=== PATIENT | female | born 1990 | race Caucasian/White ===

== ENCOUNTER 2016-12-10 04:26 | Emergency (ER) | payer MEDICAID ==
[~2016-12-10] VITALS: Ht 142.2 cm; Wt 62.6 kg
[2016-12-10 04:51] VITALS: Ht 142.2 cm; Wt 62.6 kg
[2016-12-10] MEDS ORDERED: SOD CHLORIDE 0.9% 1,000 ML IV STA (06:00)
[2016-12-10 06:22] LABS: ADD SCAN DIFF NO
[2016-12-10 06:27] LABS: BASOPHIL # 0.1 10^3/ul (0.0-0.1); BASOPHILS % 0.4 % (0.0-2.0); EOSINOPHILS # 0.2 10^3/ul (0.0-0.5); EOSINOPHILS % 1.4 % (0.0-7.0); HEMATOCRIT 35.7 % (37.0-47.0); HEMOGLOBIN 11.7 g/dl (12.0-16.0); LYMPHOCYTES # 0.9 10^3/ul (0.8-2.9); LYMPHOCYTES % 7.7 % (15.0-51.0); MEAN CORPUSCULAR HEMOGLOBIN 29.2 pg (29.0-33.0); MEAN CORPUSCULAR HGB CONC 32.8 g/dl (32.0-37.0); MEAN PLATELET VOLUME 11.1 fl (7.4-10.4); MONOCYTE # 0.6 10^3/ul (0.3-0.9); MONOCYTES % 4.9 % (0.0-11.0); NEUTROPHIL # 9.8 10^3/ul (1.6-7.5); NEUTROPHILS % 84.6 % (39.0-77.0); PLATELET COUNT 234 10^3/UL (140-415); RED BLOOD COUNT 4.01 10^6/ul (4.20-5.40); RED CELL DISTRIBUTION WIDTH 15.6 % (11.5-14.5); WHITE BLOOD COUNT 11.6 10^3/ul (4.8-10.8)
[2016-12-10] MEDS ORDERED: ACETAMINOPHEN 325 MG TAB PO ONE (06:30)
[2016-12-10 06:55] LABS: ADD UMIC YES; URINE BILIRUBIN (Dip) NEGATIVE (NEGATIVE); URINE BLOOD (Dip) 3+ (NEGATIVE); URINE COLOR LT. YELLOW (YELLOW); URINE GLUCOSE (Dip) NEGATIVE (NEGATIVE); URINE KETONES (Dip) NEGATIVE (NEGATIVE); URINE LEUKOCYTE ESTERASE (Dip) 1+ (NEGATIVE); URINE NITRITE (Dip) NEGATIVE (NEGATIVE); URINE TOTAL PROTEIN (Dip) NEGATIVE (NEGATIVE); URINE UROBILINOGEN (Dip) 0.2 E.U./dL (0.1-1.0)
[2016-12-10 07:07] LABS: SQUAMOUS EPITHELIAL CELL,UR FEW; URINE RBCS >50 /HPF (0)
[2016-12-10] MEDS ORDERED: CEFEPIME 1GM/50 ML (PMX) 50 ML IVPB ONE (08:00)
--- NOTE | 2016-12-10 08:22 | RADRPT ---
PROCEDURE: US Pelvis. CLINICAL INDICATION: Vaginal bleeding. day #2. TECHNIQUE: Multiple transabdominal sonographic images of the pelvis were obtained. COMPARISON: None. FINDINGS: The uterus is anteverted in position and measures approximately 16.5 x 9.3 x 13.7 cm. The uterus is mildly edematous compatible with state. The endometrium measures approximately 13-14 mm i n thickness and is mildly heterogeneous in echogenicity. There is no evidence of endometrial mass. Prominent subendometrial vessels of the posterior uterine body are present and may reflect postpart um enhanced myometrial vascularity. The cervix is normal. There is no free pelvic fluid. The ovaries are not visualized. The adnexa are unremarkable. IMPRESSION: Prominent subendometrial vessels of the posterior uterine body which may reflect enhanced myometrial vascularity. There is no evidence of endometrial mass. Continued clinical monitoring an d follow-up pelvic ultrasound advised. RPTAT: HLST .Regina Leon MD, Date Time Electronically viewed and signed by .Regina Leon MD, on 12/10/2016 08:22 .T/
[2016-12-10] MEDS ORDERED: TYL500 PO (10:55)
[2016-12-10] MEDS ORDERED: CEPH-443 PO (10:55)
[2016-12-10 11:20] VITALS: BP 107/65; PULSE 74; RESP 18; TEMP 98.4
--- NOTE | 2017-01-15 03:52 | ERD ---
DATE OF SERVICE: 12/10/2016 HISTORY OF PRESENT ILLNESS: This 26-year-old female presented to the emergency room for having some vaginal bleeding with clot passage and crampy generalized abdominal pain with increased pain in her right lower pelvic area going on since of her child. She had a normal vaginal delivery 2 day s ago of a healthy baby. She came in today because of the continued pain and the passage of clots. She says that it is not a lot of bleeding but she became concerned when she saw several blood clots pass as well. REVIEW OF SYSTEMS: A 10-point review of systems negative except as in the HPI. PAST MEDICAL HISTORY: Negative. PAST SURGICAL HISTORY: Cholecystectomy, appendectomy. FAMILY HISTORY: Noncontributory. SOCIAL HISTORY: The patient denies tobacco, alcohol, or other drugs and lives with the family where she has other support to help with the baby. PHYSICAL EXAMINATION VITAL SIGNS: Temperature 98.3, pulse 96, blood pressure 108/59, respirations 18, oxygen saturation 97% on room air. GENERAL: No acute distress. HEENT: Normocephalic, atraumatic. CARDIAC: Regular rate and rhythm without murmurs. LUNGS: Clear to auscultation bilaterally. ABDOMEN: Soft. Mild tenderness in the suprapubic area as well as bilateral lower pelvic area witho ut guarding or rebound, nondistended, no palpable masses. EXTREMITIES: No cyanosis, clubbing, or edema. NEUROLOGIC: No focal deficits, alert and oriented x3. SKIN: No rashes or other lesions. DIAGNOSTIC DATA: Pelvic ultrasound interpretation: Normal changes without abnormal flui d collection. No masses, normal cervix. LABORATORY ANALYSIS: CBC significant for a very mildly elevated white blood cell count of 11.6 with a hemoglobin low at 11.7, indicating normocytic anemia, which is at a level to be expected in a pos tpartum patient. Urinalysis is positive for a urinary tract infection with 10 to 25 white cells per high-powered field, 1+ leukocyte esterase. EMERGENCY DEPARTMENT COURSE AND MEDICAL DECISION MAKING: A 26-year-old female with bleed ing and urinary tract infection. The patient's pain was easily controlled in the emergency room wit h acetaminophen and IV fluid. She was given a liter of normal saline. She was also given a gram of cefepime. There is no concern for appendicitis or cholecystitis as the patient has had these organ s surgically removed. There is no evidence of abnormal fluid collection indicating a end ometrium infection or abscess. The patient felt comfortable with only Tylenol with normal vital sig ns. I do feel safe discharging her with gynecological followup and return precautions to the ER wit gan the next 2 days. I am discharging her with Keflex and acetaminophen. DISCHARGE DIAGNOSES: 1. Urinary tract infection. 2. vaginal bleeding. 3. Pelvic pain. DISPOSITION: Home in stable condition. Dictated By: ROSA HANLEY/EMELY Conf#: [id number] DID#: [id number]
== END 2016-12-10 11:22 | disposition home or self-care (01) ==
LOC: E/R 04:26
DX: O72.1 Other immediate postpartum hemorrhage (principal); O86.20 Urinary tract infection following delivery, unspecified; R10.2 Pelvic and perineal pain; B96.89 Other specified bacterial agents as the cause of diseases classified elsewhere
CPT/HCPCS: 76856; 81001; 85025; 87086; J0692; J7030; Z7610; 36415; 81003; 96374

== ENCOUNTER 2017-12-06 22:11 | Emergency (ER) | END 2017-12-07 01:52 | disposition home or self-care (01) ==

== ENCOUNTER 2018-08-16 19:23 | Emergency (ER) | END 2018-08-16 22:14 | disposition home or self-care (01) ==

== ENCOUNTER 2019-04-01 20:41 | Emergency (ER) | payer MEDICAID ==
[~2019-04-01] VITALS: Ht 152.4 cm; Wt 62.0 kg
[~2019-04-01 20:41] MED LIST: CEPH-443 PO; IBUP-1542 PO; NAPR-985 PO; SULF1TAB31 PO; TYL500 PO
[2019-04-01 20:47] VITALS: Ht 152.4 cm; Wt 62.0 kg
[2019-04-01] MEDS ORDERED: SOD CHLORIDE 0.9% 1,000 ML IV STA (23:09)
[2019-04-01] MEDS ORDERED: ONDANSETRON 4 MG INJ IV STA (23:09)
[2019-04-01] MEDS ORDERED: KETOROLAC 15 MG INJ IV STA (23:09)
[2019-04-01] MEDS ORDERED: DICYCLOMINE 10 MG CAP PO ONE (23:30)
[2019-04-02] MEDS ORDERED: TRAM50TA2 PO (01:51)
[2019-04-02] MEDS ORDERED: ONDA4TAB14 PO (01:52)
[2019-04-02 02:10] VITALS: BP 101/61; PULSE 68; RESP 17
--- NOTE | 2019-04-02 03:41 | ERD ---
ER Documentation Chief Complaint Chief Complaint RUQ WITH RADIATING PAIN TO BACK X 1 WK HPI 28-year-old Kiswahili-speaking female with history of cholelithiasis who presents to the ED complaining of right upper quadrant pain radiating to her back for the past 1 week. Patient is having intermittent, and worse after eating food. She states her diet mostly consists of beans burritos. She has some nausea but denies any vomiting. Denies any urinary symptoms. Denies any diarrhea. Denies any fevers or chills. No other complaints. ROS All systems reviewed and are negative except as per history of present illness. Medications Home Meds Active Scripts Ondansetron (Ondansetron Odt) 4 Mg Tab.rapdis, 4 MG PO Q6H PRN for NAUSEA AND/OR VOMITING, #10 TAB Prov:ADITI MAYO-C 04/02/19 Tramadol HCl (Tramadol HCl) 50 Mg Tablet, 50 MG PO Q6 PRN for PAIN, #20 TAB Prov:ADITI MAYO-C 04/02/19 Naproxen* (Naprosyn*) 500 Mg Tablet, 500 MG PO BID PRN for PAIN AND/OR INFLAMMATION, #30 TAB Prov:ZULY UREÑA PA-C 08/16/18 Sulfamethoxazole/Trimethoprim* (Bactrim Ds* Tablet) 1 Each Tablet, 1 TAB PO BID, #14 TAB Prov:JANETH VIDALC 12/07/17 Cephalexin* (Keflex*) 500 Mg Capsule, 500 MG PO TID for 7 Days, CAP Prov:JANETH VIDALC 12/07/17 Ibuprofen* (Motrin*) 600 Mg Tab, 600 MG PO Q6, #30 TAB Prov:JANETH VIDAL-C 12/07/17 Cephalexin* (Keflex*) 500 Mg Capsule, 500 MG PO QID for 3 Days, CAP Prov:ROSA PARKER DO 12/10/16 Acetaminophen* (Tylenol*) 500 Mg Tab, 500 MG PO Q4H PRN for MILD PAIN LEVEL 1-3, #20 TAB Prov:GREENJULESROSA DO 12/10/16 Allergies Allergies: Coded Allergies: No Known Allergy (Unverified , 01/24/16) PMhx/Soc History of Surgery: Yes (appendectomy) Anesthesia Reaction: No Hx Neurological Disorder: No Hx Respiratory Disorders: No Hx Cardiac Disorders: No Hx Psychiatric Problems: No Hx Miscellaneous Medical Probl: No Hx Alcohol Use: No Hx Substance Use: No Hx Tobacco Use: No Smoking Status: Never smoker Physical Exam Vitals Vital Signs Date Temp Pulse Resp B/P (MAP) Pulse Ox O2 O2 Flow FiO2 Time Delivery Rate 04/02/19 97.9 68 17 101/61 98 Room Air 02:10 (74) 04/01/19 97.4 85 17 113/79 99 20:47 (90) Physical Exam Const: No acute distress Head: Atraumatic Eyes: Normal Conjunctiva ENT: Normal External Ears, Nose and Mouth. Neck: Full range of motion. No meningismus. Resp: Clear to auscultation bilaterally Cardio: Regular rate and rhythm, no murmurs Abd: Soft, + right upper quadrant tenderness palpation. Positive Alvarez's. Negative McBurney's. No rebound, no guarding. Non distended. Normal bowel sounds Skin: No petechiae or rashes Back: No midline or flank tenderness Ext: No cyanosis, or edema Neur: Awake and alert Psych: Normal Mood and Affect Result Diagram: 04/01/19 2341 04/01/19 2341 Results 24 hrs Laboratory Tests Test 04/01/19 23:40 04/01/19 23:41 04/01/19 23:51 Serum HCG, Qualitative NEGATIVE White Blood Count 9.8 10^3/ul Red Blood Count 4.29 10^6/ul Hemoglobin 12.7 g/dl Hematocrit 38.6 % Mean Corpuscular Volume 90.0 fl Mean Corpuscular Hemoglobin 29.6 pg Mean Corpuscular 32.9 g/dl Hemoglobin Concent Red Cell Distribution Width 12.6 % Platelet Count 328 10^3/UL Mean Platelet Volume 10.2 fl Immature Granulocytes % 0.500 % Neutrophils % 67.5 % Lymphocytes % 22.0 % Monocytes % 7.2 % Eosinophils % 2.3 % Basophils % 0.5 % Nucleated Red Blood Cells % 0.0 /100WBC Immature Granulocytes # 0.050 10^3/ul Neutrophils # 6.6 10^3/ul Lymphocytes # 2.2 10^3/ul Monocytes # 0.7 10^3/ul Eosinophils # 0.2 10^3/ul Basophils # 0.1 10^3/ul Nucleated Red Blood Cells # 0.0 10^3/ul Urine Color YELLOW Urine Clarity SLIGHTLY CLOUDY Urine pH 5.0 Urine Specific [place] 1.024 Urine Ketones NEGATIVE mg/dL Urine Nitrite NEGATIVE mg/dL Urine Bilirubin NEGATIVE mg/dL Urine Urobilinogen NEGATIVE mg/dL Urine Leukocyte Esterase NEGATIVE Rafita/ul Urine Microscopic RBC 2 /HPF Urine Microscopic WBC 1 /HPF Urine Squamous Epithelial Cells FEW /HPF Urine Bacteria FEW /HPF Urine Mucus FEW /HPF Urine Hemoglobin 2+ mg/dL Urine Glucose NEGATIVE mg/dL Urine Total Protein NEGATIVE mg/dl Sodium Level 139 mmol/L Potassium Level 3.6 mmol/L Chloride Level 105 mmol/L Carbon Dioxide Level 26 mmol/L Anion Gap 8 Blood Urea Nitrogen 12 mg/dl Creatinine 0.65 mg/dl Est Glomerular Filtrat > 60 mL/min Rate mL/min Glucose Level 86 mg/dl Calcium Level 9.1 mg/dl Total Bilirubin 0.3 mg/dl Direct Bilirubin 0.00 mg/dl Indirect Bilirubin 0.3 mg/dl Aspartate Amino Transf (AST/SGOT) 22 IU/L Alanine 30 IU/L Aminotransferase (ALT/SGPT) Alkaline Phosphatase 94 IU/L Total Protein 7.5 g/dl Albumin 4.1 g/dl Globulin 3.40 g/dl Albumin/Globulin Ratio 1.20 Lipase 61 U/L POC Beta HCG, Qualitative NEGATIVE Current Medications Medications Dose Sig/Iris Start Time Status Last (Trade) Ordered Route PRN Stop Time Admin Dose Reason Admin Sodium 1,000 ml @ Q1H STAT 04/01/19 DC 04/01/19 Chloride 1,000 mls/hr IV 23:09 23:53 04/02/19 00:08 Ondansetron 4 mg ONCE STAT 04/01/19 DC 04/01/19 HCl (Zofran IV 23:09 23:53 Inj) 04/01/19 23:11 Ketorolac 15 mg ONCE STAT 04/01/19 DC 04/01/19 Tromethamine IV 23:09 23:56 (Toradol) 04/01/19 23:11 Dicyclomine 20 mg ONCE ONCE 04/01/19 DC 04/01/19 HCl PO 23:30 23:56 (Bentyl) 04/01/19 23:31 Procedures/MDM LABS & DIAGNOSTIC IMAGING: CBC: no e/o of systemic infection or severe anemia CMP: no e/o severe acidosis, alkalosis, renal failure, diabetic ketoacidosis, liver disease The patient's lipase is normal and indicative of no pancreatitis. Urine: no e/o acute infection or hematuria hcg: neg PROCEDURE: ULTRASOUND LIMITED ABDOMEN CLINICAL INDICATION: 28-year-old female with abdominal pain. TECHNIQUE: Multiple sonographic of the right upper quadrant of the abdomen were obtained. The images were reviewed on a PACS workstation. COMPARISON: CT abdomen/pelvis August 16, 2018. FINDINGS: The pancreas is partially visualized and is otherwise without abnormal echogenicity. The liver displays normal echogenicity. The liver measures 16.6 cm in length. No evidence of intrahepatic biliary ductal dilatation is seen. The portal and h epatic veins are unremarkable. The gallbladder is filled with gallstones creating a wall echo sign. The gallbladder wall thickness at the upper limits of normal measuring 3.0 mm. No pericholecystic fluid is seen. The common bile duct measures 2.9 mm and is not dilated. The right kidney displays normal echogenicity. The right kidney measures 9.9 cm in maximal length. No caliectasis or hydronephrosis is seen. No free fluid is seen. IMPRESSION: Cholelithiasis. ED COURSE: The patient was given IV fluids, Zofran, Toradol The medication was well tolerated and the patient had market improvement in symptoms. The patient remained stable throughout ED course. MEDICAL DECISION MAKIN-year-old female with history of gallstones presents with biliary colic. Her gallbladder ultrasound reveals evidence of cholelithiasis without choledocholithiasis. Her lab work here is unremarkable. I will suspicion for cholecystitis, cholangitis, pancreatitis, appendicitis, pyelonephritis or any other acute intra-abdominal process. Her pain was controlled after IV fluids, Zofran and Toradol. Recommended dietary modifications. Patient may need cholecystectomy if she continues to have recurrent biliary colic. Strict return precautions were discussed. PRESCRIPTIONS: Tramadol, Zofran SPECIALIST FOLLOW UP RECOMMENDED: None Patient has been advised to follow up with primary care in 1-2 days. Departure Diagnosis: Primary Impression: Biliary colic Condition: Stable Patient Instructions: Biliary Colic With Gallstone (Confirmed) Referrals: [facility] YOU HAVE RECEIVED A MEDICAL SCREENING EXAM AND THE RESULTS INDICATE THAT YOU DO NOT HAVE A CONDITION THAT REQUIRES URGENT TREATMENT IN THE EMERGENCY DEPARTMENT. FURTHER EVALUATION AND TREATMENT OF YOUR CONDITION CAN WAIT UNTIL YOU ARE SEEN IN YOUR DOCTORS OFFICE WITHIN THE NEXT 1-2 DAYS. IT IS YOUR RESPONSIBILITY TO MAKE AN APPOINTMENT FOR FOLOW-UP CARE. IF YOU HAVE A PRIMARY DOCTOR --you should call your primary doctor and schedule and appointment IF YOU DO NOT HAVE A PRIMARY DOCTOR YOU CAN CALL OUR PHYSICIAN REFERRAL HOTLINE AT . IF YOU CAN NOT AFFORD TO SEE A PHYSICIAN YOU CAN CHOSE FROM THE FOLLOWING [facility] INSTITUTIONS: [id number] [place] [address] [address] [place], [place] [id number] [place] [address] [address] [place] [address] Additional Instructions: Paciente aconseja volver a Departamento de urgencias inmediatamente para sntomas nuevos o que empeoran . Paciente aconseja posteriores con el PCP en 1-2 hilton. Si el paciente no tiene ninguna de atencin primaria pueden seguir con [address] [address] o [facility] [address] [place] [id number] ADITI MAYO PA-C Apr 02, 2019 03:41
== END 2019-04-02 02:10 | disposition home or self-care (01) ==
LOC: FTE 20:41
DX: K80.50 Calculus of bile duct without cholangitis or cholecystitis without obstruction (principal)
CPT/HCPCS: 36415; 76705; 80053; 81001; 83690; 84703; 85025; 96374; 96375; J1885; J2405; J7030; Z7502; Z7610; 81025